=== PATIENT | female | born 1990 | race Caucasian/White ===

== ENCOUNTER 2019-08-03 18:21 | Emergency (ER) | payer MEDICAID ==
--- NOTE | 2019-08-03 18:54 | ER Document Report ---
ED ENT - General Chief Complaint: Sore Throat Stated Complaint: SORE THROAT,LEFT EAR PAIN Time Seen by Provider: 08/03/19 18:48 Primary Care Provider: MICHAEL FRANCO PA-C [Primary Care Provider] - Follow up in 3-5 days Mode of Arrival: Ambulatory Information source: Patient Notes: 28-year-old female presents to ED for complaint of cough cold congestion left ear pain and sore throat. She states she has not had any fever and she does not have a fever at this time. She states that she is and she wants to be sure she does not have anything. TRAVEL OUTSIDE OF THE [place] IN LAST 30 DAYS: No - HPI Patient complains to provider of: Ear problem - Left ear pain, Throat problem Onset: Other - 2 days Onset/Duration: Gradual Quality of pain: Achy Severity: Moderate Pain Level: 2 Context: Recent Illness Location of pain: Ears, Nose, Sinus, Throat Associated symptoms: Ear pain - Left, Runny nose, Sinus pain, Sinus drainage, Sore throat Similar symptoms previously: Yes Recently seen / treated by doctor: No - Related Data Allergies/Adverse Reactions: divalproex sodium [From Depakote] Allergy (Verified 02/12/12 21:17) guanfacine HCl [From Tenex] Allergy (Verified 02/12/12 21:17) oxcarbazepine [From Trileptal] Allergy (Verified 02/12/12 21:15) Past Medical History - General Information source: Patient - Social History Smoking Status: Former Smoker Frequency of alcohol use: None Drug Abuse: None Lives with: Grandparent(s) Family History: Reviewed & Not Pertinent Patient has suicidal ideation: No Patient has homicidal ideation: No - Past Medical History Cardiac Medical History: Reports: None Pulmonary Medical History: Reports: None EENT Medical History: Reports: None Neurological Medical History: Reports: None Endocrine Medical History: Reports: None Renal/ Medical History: Reports: None Malignancy Medical History: Reports: None GI Medical History: Reports: None Musculoskeletal Medical History: Reports None Skin Medical History: Reports None Psychiatric Medical History: Reports: Hx Attention Deficit Hyperactivity Disorder, Hx Bipolar Disorder Traumatic Medical History: Reports: None Infectious Medical History: Reports: None Surgical Hx: Negative Past Surgical History: Reports: None - Immunizations Immunizations up to date: Yes Hx Diphtheria, Pertussis, Tetanus Vaccination: Yes Review of Systems - Review of Systems Constitutional: No symptoms reported EENT: Ear pain, Nose congestion, Nose discharge, Sinus discharge, Throat pain Cardiovascular: No symptoms reported Respiratory: No symptoms reported Gastrointestinal: No symptoms reported Genitourinary: No symptoms reported Female Genitourinary: No symptoms reported Musculoskeletal: No symptoms reported Skin: No symptoms reported Hematologic/Lymphatic: No symptoms reported Neurological/Psychological: No symptoms reported Physical Exam - Vital signs Vitals: Temp Pulse Resp BP Pulse Ox 98.1 F 84 18 125/75 99 08/03/19 18:35 08/03/19 18:35 08/03/19 18:35 08/03/19 18:35 08/03/19 18:35 Interpretation: Normal - General General appearance: Appears well, Alert - HEENT Head: Normocephalic, Atraumatic Eyes: Normal Pupils: PERRL Ears: Normal External canal: Normal Tympanic membrane: Normal Sinus: Normal Nasal: Purulent discharge, Swelling Mouth/Lips: Normal Mucous membranes: Normal Pharynx: Post nasal drainage, Other - Patient insist on strep test because she is . She does not appear to be strep positive. She does not have a fever. Strep test was sent. No: Erythema, Exudate, Retropharyngeal abscess, Tonsillar hypertrophy, Uvular edema, Potential airway comprom. Neck: Normal - Respiratory Respiratory status: No respiratory distress Chest status: Nontender Breath sounds: Normal Chest palpation: Normal - Cardiovascular Rhythm: Regular Heart sounds: Normal auscultation Murmur: No - Abdominal Inspection: Normal Distension: No distension Bowel sounds: Normal Tenderness: Nontender Organomegaly: No organomegaly - Back Back: Normal, Nontender - Extremities General upper extremity: Normal inspection, Nontender, Normal color, Normal ROM, Normal temperature General lower extremity: Normal inspection, Nontender, Normal color, Normal ROM, Normal temperature, Normal weight bearing. No: Wanda's sign - Neurological Neuro grossly intact: Yes Cognition: Normal Orientation: AAOx4 [place] Coma Scale Eye Opening: Spontaneous Fred Coma Scale Verbal: Oriented Fred Coma Scale Motor: Obeys Commands Fred Coma Scale Total: 15 Speech: Normal Motor strength normal: LUE, RUE, LLE, RLE Sensory: Normal - Psychological Associated symptoms: Normal affect, Normal mood - Skin Skin Temperature: Warm Skin Moisture: Dry Skin Color: Normal Course - Re-evaluation Re-evalutation: 08/03/19 20:38 Strep test was negative I gave patient and written report of the strep test. After performing a Medical Screening Examination, I estimate there is LOW risk for ACUTE CORONARY SYNDROME, RESPIRATORY FAILURE, SEPSIS OR MENINGITIS, thus I consider the discharge disposition reasonable. I have reevaluated this patient multiple times and no significant life threatening changes are noted. The patient and I have discussed the diagnosis and risks, and we agree with discharging home with close follow-up. We also discussed returning to the Emergency Department immediately if new or worsening symptoms occur. We have discussed the symptoms which are most concerning (e.g., changing or worsening pain, trouble swallowing or breathing, neck stiffness, fever) that necessitate immediate return. - Vital Signs Vital signs: Temp Pulse Resp BP Pulse Ox 98.4 F 86 16 116/88 H 99 08/03/19 19:38 08/03/19 19:38 08/03/19 19:38 08/03/19 19:38 08/03/19 19:38 Discharge - Discharge Clinical Impression: Sore throat (viral), Otalgia, left ear URI (upper respiratory infection) Qualifiers: URI type: unspecified viral URI Qualified Code(s): J06.9 - Acute upper respiratory infection, unspecified Condition: Stable Disposition: HOME, SELF-CARE Additional Instructions: SORE THROAT: Sore throats may be caused by viruses, bacteria, or fungi. Most are due to a virus, and must get better on their own. Bacterial sore throats, particularly those due to "strep," need treatment with antibiotics. If an antibiotic is prescribed, be sure to take the medication for a full 10 days. Failure to take the antibiotic can result in complications such as rheumatic fever. Sometimes, an injection of antibiotics is given instead of pills or liquid. This single "shot" is equal in effectiveness to the oral medication. To relieve symptoms, take acetaminophen for pain. Sip clear liquids frequently, or eat popsicles or ice chips. Anesthetic sprays or lozenges may help. Make sure the air in the room is not too dry. Avoid using decongestants or antihistamines. Call the doctor if there is no improvement in two days, or if you have difficulty breathing, increasing throat pain, high fever, rash, or frequent vomiting. UPPER RESPIRATORY ILLNESS: You have a viral infection of the respiratory passages -- a "cold." This common infection causes nasal congestion, drainage, and often sore throat and cough. It is highly contagious. The disease usually lasts about 10 to 14 days. There is no "cure" for the viral infection -- it must run its course. If there is a complication, such as bacterial infection in the nose, sinuses, middle ear, or bronchial tubes, antibiotics may be required. The antibiotics won't affect the virus. Drink plenty of fluids. A humidifier may help. An expectorant medication or decongestant may make you more comfortable. Use acetaminophen or ibuprofen for fever or aches. See the doctor if fever persists over two days, if there is any significant worsening of your symptoms, or if you simply fail to improve as expected. COUGH-SUPPRESSANT & EXPECTORANT MEDICATION: You are to use a cough medication as needed for relief of symptoms. This medicine is a combination of an expectorant (to make the mucous thinner and more easily "coughed up") and a cough suppressant (to reduce the frequency of coughing). The cough-suppressant medicine is related to narcotics. You may experience mild nausea and sleepiness. Some patients who are very sensitive to narcotics may have stomach pain from this medicine. Taking the medicine with food reduces these side effects. Do not drive or work with machinery until you know how this medicine affects you. The expectorant should have no side effects. Iodine-containing expectorants (such as organidin) should not be taken by persons with active thyroid disease unless approved by your doctor. Call the doctor if you develop shortness of breath, hives, rash, itching, lightheadedness, or severe nausea and vomiting. USE OF ACETAMINOPHEN (Tylenol): Acetaminophen may be taken for pain relief or fever control. It's much safer than aspirin, offering a wider range of "safe" dosages. It is safe during . Some brand names are Tylenol, Panadol, Datril, Anacin 3, Tempra, and Liquiprin. Acetaminophen can be repeated every four hours. The following are maximum recommended dosages: >89 pounds or adults 650 mg to 900 mg Acetaminophen can be repeated every four hours. Maximum dose not to exceed 4000 mg a day. FOLLOW-UP CARE: If you have been referred to a physician for follow-up care, call the p hysicians office for an appointment as you were instructed or within the next two days. If you experience worsening or a significant change in your symptoms, notify the physician immediately or return to the Emergency Department at any time for re-evaluation. Referrals: MICHAEL FRANCO PA-C [Primary Care Provider] - Follow up in 3-5 days
[2019-08-03 19:44] VITALS: BP 116/88
== END 2019-08-03 20:02 | disposition home or self-care (01) ==
LOC: ER 18:21
DX: J06.9 Acute upper respiratory infection, unspecified (principal); J02.9 Acute pharyngitis, unspecified; H92.02 Otalgia, left ear
CPT/HCPCS: 87070; 87880; 99283

== ENCOUNTER 2019-10-01 20:53 | Outpatient (CLI) | payer MEDICAID ==
[2019-10-01 22:16] LABS: APPEARANCE,URINE CLOUDY; BILIRUBIN,URINE NEGATIVE (NEGATIVE); COLOR,URINE YELLOW; GLUCOSE, URINE NEGATIVE (NEGATIVE); KETONES,URINE NEGATIVE (NEGATIVE); LEUKOCYTE ESTERASE,URINE LARGE (NEGATIVE); NITRITE,URINE NEGATIVE (NEGATIVE); PROTEIN,URINE NEGATIVE (NEGATIVE); URINE SPECIFIC GRAVITY 1.028; UROBILINOGEN,URINE NEGATIVE mg/dL (<2.0)
[2019-10-01 22:33] LABS: URINE AMPHETAMINES SCREEN NEGATIVE; URINE BARBITURATES SCREEN NEGATIVE; URINE BENZODIAZEPINES SCREEN NEGATIVE; URINE COCAINE SCREEN NEGATIVE; URINE MARIJUANA (THC) SCREEN NEGATIVE; URINE METHADONE SCREEN NEGATIVE; URINE PHENCYCLIDINE SCREEN NEGATIVE
== END 2019-10-01 22:32 | disposition home or self-care (01) ==
LOC: LC 20:53
PROVIDERS: ATTEND Student in an Organized Health Care Education/Training Program
PROC: 4A1HXCZ Monitoring of Products of Conception, Cardiac Rate, External Approach (ICD-10-PCS; principal; 2019-10-01)
DX: O26.893 Other specified pregnancy related conditions, third trimester (principal); E86.0 Dehydration; Z3A.39 39 weeks gestation of pregnancy
CPT/HCPCS: 80307; 81005

== ENCOUNTER 2019-10-07 15:44 | Outpatient (CLI) | payer MEDICAID ==
--- NOTE | 2019-10-07 15:58 | Non Stress Test Report ---
Non Stress Test Datetime Report Generated by CPN: 10/07/2019 15:58 DEMOGRAPHIC Test Number: 2 EGA NST: 39.5 INDICATION Indication for Study (NST) Other: LC ordered by provider Indication for Study (NST) Other: Labor check MONITORING Monitor Explained: Monitor Explained; Test Explained; Patient Verbalized Understanding Time on Monitor: 10/01/2019 21:15 Time off Monitor: 10/01/2019 22:18 NST Duration: 63 NST INTERVENTIONS NST Interventions: None Physician Notified NST: Dr Rivera BABY A: [id number] BABY A Movement : Present Contraction Frequency : occasional FHR Baseline : 140 Accelerations : 15X15 Decelerations : None Variability : Moderate 6-25bpm NST Review: Meets Criteria for Reactive NST NST Review and Verified By : Júnior Smith RN NST Results: Reactive NST REPORT Report Trigger: Send Report
[2019-10-07 17:10] LABS: AMORPHOUS SEDIMENT,URINE TRACE /HPF; APPEARANCE,URINE CLOUDY; BILIRUBIN,URINE NEGATIVE (NEGATIVE); COLOR,URINE YELLOW; GLUCOSE, URINE NEGATIVE (NEGATIVE); KETONES,URINE NEGATIVE (NEGATIVE); LEUKOCYTE ESTERASE,URINE MODERATE (NEGATIVE); NITRITE,URINE NEGATIVE (NEGATIVE); PROTEIN,URINE NEGATIVE (NEGATIVE); URINE SPECIFIC GRAVITY 1.018
[2019-10-07 17:43] LABS: URINE AMPHETAMINES SCREEN NEGATIVE; URINE BARBITURATES SCREEN NEGATIVE; URINE BENZODIAZEPINES SCREEN NEGATIVE; URINE COCAINE SCREEN NEGATIVE; URINE MARIJUANA (THC) SCREEN NEGATIVE; URINE METHADONE SCREEN NEGATIVE; URINE PHENCYCLIDINE SCREEN NEGATIVE
== END 2019-10-07 18:15 | disposition home or self-care (01) ==
LOC: LC 15:44
PROVIDERS: ATTEND Student in an Organized Health Care Education/Training Program
DX: O47.1 False labor at or after 37 completed weeks of gestation (principal); O48.0 Post-term pregnancy; Z3A.40 40 weeks gestation of pregnancy
CPT/HCPCS: 59025; 80307; 81001

== ENCOUNTER 2019-10-08 18:00 | Outpatient (CLI) | payer MEDICAID ==
--- NOTE | 2019-10-08 18:49 | Non Stress Test Report ---
Non Stress Test Datetime Report Generated by CPN: 10/08/2019 18:49 DEMOGRAPHIC EGA NST: 40.5 INDICATION Indication for Study (NST) Other: Contractions MONITORING Monitor Explained: Monitor Explained; Test Explained; Patient Verbalized Understanding Time on Monitor: 10/08/2019 18:12 Time off Monitor: 10/08/2019 18:43 NST Duration: 31 NST INTERVENTIONS NST Interventions: PO Hydration Physician Notified NST: Dr. Herron BABY A: [id number] BABY A Movement : Present Contraction Frequency : Irreg FHR Baseline : 150 Accelerations : 15X15 Decelerations : None Variability : Moderate 6-25bpm NST Review: Meets Criteria for Reactive NST NST Review and Verified By : JOSEFINA Cotton Results: Reactive NST REPORT Report Trigger: Send Report
[2019-10-08 19:01] LABS: APPEARANCE,URINE SLIGHTLY-CLOUDY; BILIRUBIN,URINE NEGATIVE (NEGATIVE); COLOR,URINE YELLOW; GLUCOSE, URINE NEGATIVE (NEGATIVE); KETONES,URINE NEGATIVE (NEGATIVE); LEUKOCYTE ESTERASE,URINE TRACE (NEGATIVE); NITRITE,URINE NEGATIVE (NEGATIVE); PROTEIN,URINE NEGATIVE (NEGATIVE); URINE SPECIFIC GRAVITY 1.016; UROBILINOGEN,URINE NEGATIVE mg/dL (<2.0)
[2019-10-08 19:19] LABS: URINE AMPHETAMINES SCREEN NEGATIVE; URINE BARBITURATES SCREEN NEGATIVE; URINE BENZODIAZEPINES SCREEN NEGATIVE; URINE COCAINE SCREEN NEGATIVE; URINE MARIJUANA (THC) SCREEN NEGATIVE; URINE METHADONE SCREEN NEGATIVE; URINE PHENCYCLIDINE SCREEN NEGATIVE
== END 2019-10-08 19:59 | disposition home or self-care (01) ==
LOC: LC 18:00
PROVIDERS: ATTEND Obstetrics & Gynecology Gynecology
PROC: 4A1HXCZ Monitoring of Products of Conception, Cardiac Rate, External Approach (ICD-10-PCS; principal; 2019-10-08)
DX: O47.1 False labor at or after 37 completed weeks of gestation (principal); O48.0 Post-term pregnancy; Z3A.40 40 weeks gestation of pregnancy
CPT/HCPCS: 59025; 80307; 81005

== ENCOUNTER 2019-10-09 03:55 | Inpatient (IN) | payer MEDICAID ==
[2019-10-09 04:36] LABS: APPEARANCE,URINE SLIGHTLY-CLOUDY; BILIRUBIN,URINE NEGATIVE (NEGATIVE); COLOR,URINE YELLOW; GLUCOSE, URINE NEGATIVE (NEGATIVE); KETONES,URINE TRACE mg/dL (NEGATIVE); LEUKOCYTE ESTERASE,URINE SMALL (NEGATIVE); NITRITE,URINE NEGATIVE (NEGATIVE); PROTEIN,URINE 30 mg/dL (NEGATIVE); URINE SPECIFIC GRAVITY 1.028; UROBILINOGEN,URINE NEGATIVE mg/dL (<2.0)
[2019-10-09 04:56] LABS: URINE AMPHETAMINES SCREEN NEGATIVE; URINE BARBITURATES SCREEN NEGATIVE; URINE BENZODIAZEPINES SCREEN NEGATIVE; URINE COCAINE SCREEN NEGATIVE; URINE MARIJUANA (THC) SCREEN NEGATIVE; URINE METHADONE SCREEN NEGATIVE; URINE PHENCYCLIDINE SCREEN NEGATIVE
[2019-10-09] MEDS ORDERED: MISOPROSTOL 0.2 MG TABLET ONE (05:19)
[2019-10-09] MEDS ORDERED: OXYTOCIN 10 UNIT/ML VIAL ONE (05:19)
[2019-10-09] MEDS ORDERED: OXYTOCIN/NORMAL SALINE 20 UNIT/1,000 ML RTUINJ ONE (05:19)
[2019-10-09] MEDS ORDERED: LIDOCAINE 1% INJ-PF (10 MG/ML) 30 ML SDV ONE (05:19)
[2019-10-09] MEDS ORDERED: RINGERS SOLUTION,LACTATED 1,000 ML IV ONE (05:28)
[2019-10-09] MEDS ORDERED: PENICILLIN G POTASSIUM 5,000,000 UNIT in DEXTROSE 5%-WATER 100 ML IV ONE (05:28)
[2019-10-09] MEDS ORDERED: PENICILLIN G-K 5 MILLION UNIT VIAL ONE ×5 (05:31→21:59)
[2019-10-09 05:59] LABS: ABSOLUTE BASOPHILS # (AUTO) 0.1 10^3/uL (0.0-0.2); ABSOLUTE EOSINOPHILS # (AUTO) 0.1 10^3/uL (0.0-0.6); ABSOLUTE LYMPHOCYTES (AUTO) 2.1 10^3/uL (0.5-4.7); ABSOLUTE MONOCYTES (AUTO) 0.6 10^3/uL (0.1-1.4); ABSOLUTE NEUT (AUTO) 9.2 10^3/uL (1.7-8.2); BASOPHILS % (AUTO) 0.8 % (0-2); EOSINOPHILS % (AUTO) 0.9 % (0-6); HEMATOCRIT 35.2 % (36.0-47.0); HEMOGLOBIN 11.9 g/dL (12.0-15.5); LYMPHOCYTES % (AUTO) 17.1 % (13-45); MEAN CORPUSCULAR HEMOGLOBIN 28.2 pg (27.0-33.4); MEAN CORPUSCULAR HGB CONC 33.7 g/dL (32.0-36.0); MEAN CORPUSCULAR VOLUME 84 fl (80-97); MONOCYTES % (AUTO) 4.8 % (3-13); PLATELET COUNT 252 10^3/uL (150-450); RED CELL DISTRIBUTION WIDTH 14.5 % (11.5-14.0); SEGMENTED NEUTROPHILS % (AUTO) 76.4 % (42-78); TOTAL CELLS COUNTED % (AUTO) 100 %
[2019-10-09] MEDS ORDERED: OXYTOCIN/NORMAL SALINE 20 UNIT/1,000 ML RTUINJ IV PRN (07:44)
[2019-10-09] MEDS ORDERED: MORPHINE SULFATE 10 MG/ML INJ IV ONE (07:44)
[2019-10-09] MEDS ORDERED: MORPHINE SULFATE 10 MG/ML INJ ONE (07:47)
[2019-10-09] MEDS: PENICILLIN G POTASSIUM 2,500,000 UNIT in DEXTROSE 5%-WATER 50 ML IV SCH ×4 (09:26→22:01)
[2019-10-09] MEDS: RINGERS SOLUTION,LACTATED 1,000 ML IV PRN (13:29)
[2019-10-09] MEDS ORDERED: EPHEDRINE SULFATE INJ 50 MG/1 ML AMPULE ONE (13:40)
[2019-10-09] MEDS ORDERED: FENTANYL CITRATE INJ/PF 100 MCG/2 ML AMPUL ONE (13:40)
[2019-10-09] MEDS ORDERED: FENTANYL/BUPIVACAINE/NS/PF 300 MCG/150 ML RTUINJ EPI ONE (13:41)
[2019-10-09] MEDS ORDERED: BUPIVACAINE HCL 0.25 % INJ/PF (2.5 MG/1 ML) 30 ML VIAL ONE (13:41)
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
[2019-10-10] MEDS ORDERED: DIPHENHYDRAMINE HCL 50 MG/ML VIAL ONE (00:35)
[2019-10-10] MEDS ORDERED: DIPHENHYDRAMINE HCL 50 MG/ML VIAL IV ONE (00:36)
[2019-10-10] MEDS ORDERED: CALCIUM CARBONATE 500 MG TAB.CHEW PO ONE (00:47)
[2019-10-10] MEDS ORDERED: PENICILLIN G-K 5 MILLION UNIT VIAL ONE (02:18)
[2019-10-10] MEDS ORDERED: FENTANYL/BUPIVACAINE/NS/PF 300 MCG/150 ML RTUINJ EPI ONE (02:18)
[2019-10-10] MEDS: PENICILLIN G POTASSIUM 2,500,000 UNIT in DEXTROSE 5%-WATER 50 ML IV SCH ×4 (02:25→17:51)
[2019-10-10] MEDS ORDERED: CEFAZOLIN INJ 1 GM VIAL ONE (06:04)
[2019-10-10] MEDS ORDERED: CITRIC ACID/SODIUM CITRATE ORAL SOLN 15 ML UDCUP ONE (06:04)
--- NOTE | 2019-10-10 06:17 | PDOC PROGRESS REPORT ---
Subjective Progress Note for:: 10/09/19 Subjective:: Called to patients room as she was complete and pushing for 1 hour. Assessed and still 0-1+ station. Maternal fatigue and patients pushing effort poor. D/c with patient that small amount of cervical swelling noted. Can give benadryl for swellling of anterior lip and will let her labor down after repositioning and Pitocin break. SHe is agreeable as she prefers a vaginal delivery if possible. Reason For Visit: Physical Exam - Physical Exam Vital Signs: Intake & Output 10/08/19 10/09/19 10/10/19 06:59 06:59 06:59 Weight 93 kg General appearance: PRESENT: no acute distress Neurological exam: PRESENT: alert, awake, oriented to person, oriented to time, oriented to situation Psychiatric exam: PRESENT: appropriate affect Skin exam: PRESENT: dry, warm - Gynecological Exam Cervix: other - ANterior lip, mild swelling compared to earlier-approx 1/2 cm 0 to 1+ station Result Laboratory Results: 10/09/19 05:40 10/09/19 05:40 Blood Type B POSITIVE Antibody Screen NEGATIVE Assessment & Plan - Diagnosis (1) PROM (premature rupture of membranes) Is this a current diagnosis for this admission?: Yes Plan: Continue current care WIll give benadryl IV, allow patient to rest. INstructed to call out iwth pressure or urge to push. Cat 1 NST Continue GBS prophylaxis, CEFM and toco - Time Time Spent with patient: 15-24 minutes
--- NOTE | 2019-10-10 06:25 | PDOC PROGRESS REPORT ---
Subjective Progress Note for:: 10/10/19 Subjective:: Patient rested approx 4-5 hours but is now feeling pressure and urge to push. Pushed with patient for >30 minutes and no progression of station. Maternal exhaustion and inability to rally further efforts. D/c with her that baby is not descending in pelvis despite her effort and escalating doing of pitocin . Recommend primary CS. RIsks , benefits and alternatives discussed. Consent signed. Ancef and abdominal prep ordered. Reason For Visit: Physical Exam - Physical Exam Vital Signs: Intake & Output 10/08/19 10/09/19 10/10/19 06:59 06:59 06:59 Weight 93 kg - Gynecological Exam Cervix: other - ANterior lip, mild swelling compared to earlier-approx 1/2 cm 0 to 1+ station Result Laboratory Results: 10/09/19 05:40 10/09/19 05:40 Blood Type B POSITIVE Antibody Screen NEGATIVE Assessment & Plan - Diagnosis (1) PROM (premature rupture of membranes) Is this a current diagnosis for this admission?: Yes (2) Arrested active phase of labor Is this a current diagnosis for this admission?: Yes Plan: Plan for Primary section -ANcef two grams prior to OR -Desires BTL and title XX signed -OR and anesthesia notified. - Time Time Spent with patient: 15-24 minutes
[2019-10-10 07:24] LABS: ABSOLUTE LYMPHOCYTES (AUTO) 1.3 10^3/uL (0.5-4.7); ABSOLUTE MONOCYTES (AUTO) 0.8 10^3/uL (0.1-1.4); ABSOLUTE NEUT (AUTO) 12.1 10^3/uL (1.7-8.2); BASOPHILS % (AUTO) 0.2 % (0-2); HEMATOCRIT 34.2 % (36.0-47.0); HEMOGLOBIN 11.8 g/dL (12.0-15.5); LYMPHOCYTES % (AUTO) 9.1 % (13-45); MEAN CORPUSCULAR HEMOGLOBIN 28.4 pg (27.0-33.4); MEAN CORPUSCULAR HGB CONC 34.5 g/dL (32.0-36.0); MEAN CORPUSCULAR VOLUME 82 fl (80-97); PLATELET COUNT 167 10^3/uL (150-450); RED BLOOD COUNT 4.16 10^6/uL (3.72-5.28); RED CELL DISTRIBUTION WIDTH 14.6 % (11.5-14.0); SEGMENTED NEUTROPHILS % (AUTO) 84.7 % (42-78); TOTAL CELLS COUNTED % (AUTO) 100 %; WHITE BLOOD COUNT 14.2 10^3/uL (4.0-10.5)
[2019-10-10] MEDS ORDERED: LIDOCAINE 2% INJ-PF (20 MG/ML) 10 ML AMPUL ONE ×2 (07:32→08:35)
[2019-10-10] MEDS ORDERED: OXYTOCIN 10 UNIT/ML VIAL ONE ×2 (07:39→08:17)
[2019-10-10] MEDS ORDERED: FENTANYL CITRATE INJ/PF 100 MCG/2 ML AMPUL ONE ×2 (07:39→08:35)
[2019-10-10] MEDS ORDERED: MIDAZOLAM 2 MG/2 ML INJ ONE (07:40)
[2019-10-10] MEDS ORDERED: EPHEDRINE SULFATE INJ 50 MG/1 ML AMPULE ONE (07:40)
[2019-10-10] MEDS ORDERED: OXYTOCIN/NORMAL SALINE 20 UNIT/1,000 ML RTUINJ ONE (07:40)
[2019-10-10] MEDS ORDERED: ONDANSETRON HCL INJ/PF 4 MG/2 ML SDV ONE (07:40)
[2019-10-10] MEDS ORDERED: METHYLERGONOVINE MALEATE INJ/PF 0.2 MG/1 ML AMPULE ONE (08:18)
[2019-10-10] MEDS ORDERED: PROMETHAZINE HCL INJ 25 MG/1 ML VIAL IV PRN (09:04)
[2019-10-10] MEDS ORDERED: DIPH/PERTUSS(ACELL)/TETANUS VAC/PF 0.5 ML SYR (>=10YO) IM PRN (09:04)
[2019-10-10] MEDS ORDERED: MEASLES,MUMPS&RUBELLA VACC/PF 0.5 ML VIAL SUBCUT PRN (09:04)
[2019-10-10] MEDS ORDERED: HYDROMORPHONE HCL INJ/PF 2 MG/ML AMPULE IV PRN (09:04)
[2019-10-10] MEDS ORDERED: ACETAMINOPHEN 325 MG TABLET PO PRN (09:04)
[2019-10-10] MEDS ORDERED: SIMETHICONE 80 MG TAB.CHEW PO PRN (09:04)
[2019-10-10] MEDS ORDERED: OXYCODONE-ACETAMINOPHEN 5-325 MG TABLET PO PRN (09:04)
[2019-10-10] MEDS ORDERED: OXYTOCIN/NORMAL SALINE 20 UNIT/1,000 ML RTUINJ IV PRN (09:04)
--- NOTE | 2019-10-10 09:20 | PDOC DELIVERY SUMMARY ---
Delivery Summary - Maternal Hx : I Hx Para: 0 RANJIT: 10/08/19 Gestational Age: 40.2 Ruptured Membranes: SROM Fluids: Clear - Delivery Labor: Prolonged Second Stage- Greater Than 2.5 Hours Presentation: Vertex - Occiput posterior Heart Rate Monitoring: Externally Uterine Contraction Monitoring: External Support Person Present: Yes : Primary Placenta: Within Normal Limits Estimated Blood Loss: 800cc - Medications Type of Anesthesia:: Spinal - Delivery Personnel MD: LISA RICH
[2019-10-10] MEDS ORDERED: KETOROLAC TROMETHAMINE INJ/PF 30 MG/1 ML SDV ONE (09:29)
[2019-10-10] MEDS: KETOROLAC TROMETHAMINE INJ/PF 30 MG/1 ML SDV IV SCH ×2 (09:33→15:46)
[2019-10-10] MEDS ORDERED: ACETAMINOPHEN 1,000 MG/100 ML RTUPB IV ONE (09:38)
[2019-10-10] MEDS ORDERED: ACETAMINOPHEN 1,000 MG/100 ML RTUPB IV PRN (09:39)
--- NOTE | 2019-10-10 10:07 | Operative Report ---
Operative Report DATE OF SURGERY: 10/10/19 PREOPERATIVE DIAGNOSIS: Arrest of descent. Prolonged active phase of labor. M aternal exhaustion POSTOPERATIVE DIAGNOSIS: Same as above with addition of occiput posterior OPERATION: Primary section SURGEON: LISA RICH ANESTHESIA: Spinal TISSUE REMOVED OR ALTERED: Placenta COMPLICATIONS: Difficulty with delivery anterior shoulder requiring a T type incision on uterus and extension ESTIMATED BLOOD LOSS: 800cc INTRAOPERATIVE FINDINGS: NOrmal appearing uterus, bilateral fallopian tubes and ovaries. Baby in occiput posterior position. Viable female with apgars of 5 and 9 at one and 5 minutes respectfully. Uterine incision T- shape due to difficulty with delivery of anterior shoulder. Extension of uterine incision by 1 cm on right side. PROCEDURE: IV fluids: per anesthesia record Urinary output: 250 cc Findings: Normal-appearing uterus bilateral fallopian tubes and ovaries. Viable female infant with Apgars of 5 and 9, at 1 and 5 minutes respectively. Position: To recovery room in stable condition Description of procedure: The patient was taken to the operating room and spinal anesthesia was administered and found to be adequate. She was then placed on the OR table in the supine position with a slight leftward tilt. Patient was prepped and draped in usual sterile fashion. Ancef 2 gms was given IV prior to the procedure for infection prophylaxis. Timeout was taken. A Pfannenstiel skin incision was then made approximately 3 cm above the pubic symphysis and carried down to level the rectus fascia. The rectus fascia was then nicked in the midline with a scalpel and the fascial incision was extended laterally with use of curved Gaffney scissors. The rectus fascia was then grasped with 2 Kocker clamps elevated and the underlying rectus muscle was dissected off both bluntly and sharply. Any bleeding controlled with cautery. The rectus muscles were then split in the midline and the peritoneum was entered. The peritoneal incision was then extended by manually stretching the peritoneum. The bladder blade was positioned. The bladder was noted to be out of harm's way. A scalpel was then used in the lower uterine for the hysterotomy, slowly until amniotomy was obtained a large amount of fluid was noted. The uterine incision was then manually stretched. The infant was noted to be in vertex postion -deep in the pelvis. Using a hand deep in pelvis and assistance from RN from below the drape, the head was elevated and brought to the hysterotomy incision. The head then delivered with minmal difficulty. The shoulders were very difficult to deliver. The uterine incision was extended with bandage scissors and the anterior shoulder still would not deliver. Bandage scissors were used to extend the uterine incision in a T-shaped fashion. Still with some difficulty the anterior shoulder finally delivered. The rest of the body followed immediately. The cord was cut clamped and the was handed off to the nurse awaiting. The placenta was manually delivered. Using a lap gauze the uterus was cleared of all clots and debris. The uterus was then exteriorized and a bladder blade was repositioned. The uterine incision and T incsion were then closed with 0 Chromic suture in a running locked fashion. There was a 1 cm extension on the right toward the cervix and this was repaired with 0 chromic suture as well. A second layer of the same suture was used in a running locked imbricated fashion. The uterine incision was inspected as well as the extension and T incision on the uterus and all were noted to be hemostatic. The posterior aspect of the uterus was then inspected and anatomy was seen as above. The uterus was returned to its normal anatomic position within the abdominal cavity. Warm saline irrigation was used to clear all clots and debris from the abdomen. The uterine incision was inspected once more and noted to remain hemostatic. Surgicel was placed over the uterine incision and T incision on the uterus care was taken to make sure the Surgicel covered the extension on the r ight side as above. The bladder blade was removed and the peritoneum was closed with 2-0 chromic in a running fashion. The rectus muscles were then reapproximated and the rectus fascia was closed with a #1 PDS in a running fashion. The subcutaneous tissue was then inspected and any bleeding was controlled with Bovie electrocautery. The subcutaneous tissue was then closed with 2-0 Plain Gut suture in a running fashion. The skin was then closed with 3- 0 Monocryl in a running subcuticular fashion. The skin incision was then clean dried and Dermabond was applied over the skin incision. All instrument sponge and needle counts were correct x3 for the procedure the patient tolerated the procedure well. She will proceed to recovery room in stable condition
--- NOTE | 2019-10-10 10:17 | Delivery Summary ---
Del Sum A-C Datetime Report Generated by CPN: 10/10/2019 10:17 DELIVERY PERSONNEL DELIVERY PERSONNEL: [id number] Delivery Doctor:: Cat Dominguez MD Anesthesiologist:: Amy Sandoval MD ROAD MANAGER:: Rolando Durand CRNA Frame Tender:: Char Robertson RN Neonatal Nurse Practitioner:: PAULO Ellison Nursery Nurse:: Joanne Trinidad RN Nursery Nurse:: Fani Titus RN Cinema Operator/DRAFTER AUTOMOTIVE DESIGN: Anita Marina CST Cinema Operator/DRAFTER AUTOMOTIVE DESIGN: [facility] [place] Additional Personnel: : Romelia Iglesias RN MATERNAL INFORMATION Delivery Anesthesia: Epidural Medications After Delivery: Pitocin Drip 20 Units/1000ml NSS; Other-Please Comment Meds After Delivery Comment: pitocin 20 units in 1000mL nss Please see anesthesia record Delivery QBL: 778 Maternal Complications: None LABOR SUMMARY EDC: 10/03/2019 00:00 No. Babies in Womb: 1 Attempted: No Labor Anesthesia: Epidural LABOR INFORMATION Reason for Induction: Not Applicable Onset of Labor: 10/09/2019 07:25 Complete Dilatation: 10/09/2019 19:42 Oxytocin: Augmentation Group B Beta Strep: Positive Antibiotics # of Doses: 6 Antibiotics Time of Last Dose: 224 Name of Antibiotic Given: PCN Steroids Given: None Reason Steroids Not Administered: Not Applicable MEMBRANES Membranes Rupture Method: Spontaneous Rupture of Membranes: 10/09/2019 00:30 Length of Rupture (hr): 31.72 Amniotic Fluid Color: Clear Amniotic Fluid Amount: Small Amniotic Fluid Odor: Normal STAGES OF LABOR Stage 1 hr: 12 Stage 1 min: 17 Stage 2 hr: 12 Stage 2 min: 31 Stage 3 hr: 0 Stage 3 min: 1 Total Time in Labor hr: 24 Total Time in Labor min: 49 VAGINAL DELIVERY Episiotomy: None Laceration #1: None Laceration Extension #1: N/A Laceration Repair: Not Applicable Sponge Count Correct: N/A Sharps Count Correct: N/A CSECTION DELIVERY Primary Indication: Failure of Descent CSection Urgency: Non-Scheduled CSection Incidence: Primary Labor: Labor Elective: Nonelective CSection Incision: Lower Uterine Transverse BABY A INFORMATION Infant Delivery Date/Time: 10/10/2019 08:13 Method of Delivery: Nurse Controlled Delivery: No Born in Route : No : N/A Forceps: N/A Vacuum Extraction: N/A Shoulder Dystocia : No PRESENTATION/POSITION BABY A Presentation: Cephalic Cephalic Presentation: Vertex Vertex Position: Direct OP Breech Presentation: N/A PLACENTA INFORMATION BABY A Placenta Delivery Time : 10/10/2019 08:14 Placenta Method of Delivery: Manual Removal Placenta Status: Delivered SCORES BABY A Heart Rate 1 min: >100 bpm Resp Effort 1 min: Slow, Irregular Reflex Irritability 1 min: Grimace Muscle Tone 1 min: Some Flexion of Extremities Color 1 min: Blue/Pale Resuscitation Effort 1 min: Tactile Stimulation SCORE 1 MIN: 5 Heart Rate 5 min: >100 bpm Resp Effort 5 min: Good Cry Reflex Irritability 5 min: Cough or Sneeze or Pulls Away Muscle Tone 5 min: Active Motion Color 5 min: Body [place], Extremities Blue Resuscitation Effort 5 min: Tactile Stimulation SCORE 5 MIN: 9 INFORMATION BABY A Gestational Age at Delivery: 41.0 Gestational Status: Late Term- 41- 41.6 Weeks Infant Outcome : Liveborn Condition : Stable Infant Sex: Female IDENTIFICATION BABY A Infant Verification Date/Time: 10/10/2019 08:14 ID Band Number: [id number] Mother's Name Verified: Yes Infant RN Verifying Infant: RElaine Robertson RN/ CElaine Iglesias, RN WEIGHT/LENGTH BABY A Infant Birthweight (gm): 3455 Infant Weight (lb): 7 Infant Weight (oz): 10 Length (in): 20.00 Length (cm): 50.80 CORD INFORMATION BABY A No. Cord Vessels: 3 Nuchal Cord : N/A Cord Blood Taken: Yes-For Storage (Mom's Blood type +) Infant Suction: Mouth; Nose ASSESSMENT BABY A Infant Complications: None Skin to Skin: No Court Attendant/ALS Called : No Infant Care By: Nursery staff @ delivery Transferred To: Nursery BABY B INFORMATION : N/A SIGNATURES : I was personally available for consultation and serving as supervising physician for the MLP.
[2019-10-10] MEDS ORDERED: HYDROMORPHONE HCL INJ/PF 2 MG/ML AMPULE ONE (10:34)
[2019-10-10] MEDS: DOCUSATE SODIUM 100 MG CAPSULE PO SCH ×2 (13:35→17:47)
[2019-10-10] MEDS: PRENATAL VITAMIN W DHA CAPSULE PO SCH (13:35)
[2019-10-10] MEDS: OXYCODONE-ACETAMINOPHEN 5-325 MG TABLET PO PRN ×2 (14:25→21:10)
[2019-10-10] MEDS: RINGERS SOLUTION,LACTATED 1,000 ML IV PRN (14:27)
[2019-10-10] MEDS ORDERED: IBUPROFEN 800 MG TABLET ONE (20:25)
[2019-10-10] MEDS ORDERED: IBUPROFEN 800 MG TABLET PO ONE (20:30)
[2019-10-11] MEDS: IBUPROFEN 800 MG TABLET PO SCH ×5 (00:32→23:31)
[2019-10-11] MEDS: OXYCODONE-ACETAMINOPHEN 5-325 MG TABLET PO PRN ×2 (01:10→06:31)
[2019-10-11 08:09] LABS: HEMATOCRIT 30.6 % (36.0-47.0); HEMOGLOBIN 10.5 g/dL (12.0-15.5); MEAN CORPUSCULAR HEMOGLOBIN 28.6 pg (27.0-33.4); MEAN CORPUSCULAR HGB CONC 34.3 g/dL (32.0-36.0); MEAN CORPUSCULAR VOLUME 83 fl (80-97); PLATELET COUNT 163 10^3/uL (150-450); RED BLOOD COUNT 3.67 10^6/uL (3.72-5.28); RED CELL DISTRIBUTION WIDTH 14.8 % (11.5-14.0); WHITE BLOOD COUNT 12.8 10^3/uL (4.0-10.5)
[2019-10-11] MEDS: PRENATAL VITAMIN W DHA CAPSULE PO SCH (09:39)
[2019-10-11] MEDS: DOCUSATE SODIUM 100 MG CAPSULE PO SCH ×2 (09:39→17:26)
--- NOTE | 2019-10-11 11:00 | PDOC PROGRESS REPORT ---
Subjective-OB Progress Note for:: 10/11/19 Subjective: reports bleeding slowing, pain controlled with current meds. denies needs. + passing gas Physical Exam (OB) Vital Signs: Temp Pulse Resp BP Pulse Ox 97.5 F 69 16 101/62 95 10/11/19 07:30 10/11/19 07:30 10/11/19 07:30 10/11/19 07:30 10/11/19 07:30 Intake & Output 10/10/19 10/11/19 10/12/19 06:59 06:59 06:59 Intake Total 1000 700 Output Total 2525 Balance 1000 -1825 - Dressing Removed: No Incision: Open Closure Type: Surgical Glue - Abdomen Description: Tender, Soft, Round Hernia Present: No Fundal Description: Firm, Midline Fundal Height: u/u - u/2 - Abdominal Distension: No distension - Extremities Lower extremities: Wanda's sign - neg Calf: Normal, Nontender Objective-Diagnostic Laboratory: 10/11/19 07:37 10/11/19 07:37 WBC 12.8 H RBC 3.67 L Hgb 10.5 L Hct 30.6 L MCV 83 MCH 28.6 MCHC 34.3 RDW 14.8 H Plt Count 163
[2019-10-12] MEDS: IBUPROFEN 800 MG TABLET PO SCH ×2 (05:22→12:07)
--- NOTE | 2019-10-12 08:57 | PDOC PROGRESS REPORT ---
Subjective-OB Progress Note for:: 10/12/19 Subjective: Sitting up in bed, ready to go home, pain under control, voiding, passing gas, eating well Physical Exam (OB) Vital Signs: Temp Pulse Resp BP Pulse Ox 97.5 F 74 16 114/73 95 10/12/19 07:31 10/12/19 07:31 10/12/19 07:31 10/12/19 07:31 10/12/19 07:31 Intake & Output 10/11/19 10/12/19 10/13/19 06:59 06:59 06:59 Intake Total 700 400 Output Total 2525 Balance -1825 400 - PIH/Pre-Eclampsia DTR's: 1 + Clonus: Negative Headache: Absent Epigastric Pain: No Visual Changes: No - Dressing Removed: No Incision: Well Approximated Closure Type: Surgical Glue - Lochia Lochia Amount: Scant < 10 ml Lochia Color: Rubra/Red - Abdomen Description: Soft Hernia Present: No Fundal Description: Firm, Midline Fundal Height: u/u - u/2 Objective-Diagnostic Laboratory: 10/11/19 07:37 Assessment and Plan(PN) - Assessment and Plan (1) Delivery of third by section using T-shaped incision Is this a current diagnosis for this admission?: Yes (2) Encounter for induction of labor Is this a current diagnosis for this admission?: Yes (3) S/P primary low transverse Is this a current diagnosis for this admission?: Yes (4) Arrested active phase of labor Is this a current diagnosis for this admission?: Yes (5) PROM (premature rupture of membranes) Qualifiers: PROM onset of labor timing: onset of labor within 24 hours of rupture PROM gestational age: full term Qualified Code(s): O42.02 - Full-term premature rupture of membranes, onset of labor within 24 hours of rupture Is this a current diagnosis for this admission?: Yes - Time Spent with Patient Time with patient: Less than 15 minutes Medications reviewed and adjusted accordingly: Yes - Disposition Anticipated Discharge: Home
[2019-10-12] MEDS: PRENATAL VITAMIN W DHA CAPSULE PO SCH (09:10)
[2019-10-12] MEDS: DOCUSATE SODIUM 100 MG CAPSULE PO SCH (09:11)
--- NOTE | 2019-10-12 09:30 | PDOC DISCHARGE SUMMARY ---
Impression - Admit/DC Date/PCP Admission Date/Primary Care Provider: 10/09/19 04:43 MARISABEL NORTH MD Discharge Date: 10/12/19 - Discharge Diagnosis (1) Delivery of third by section using T-shaped incision Is this a current diagnosis for this admission?: Yes (2) Encounter for induction of labor Is this a current diagnosis for this admission?: Yes (3) S/P primary low transverse Is this a current diagnosis for this admission?: Yes (4) Arrested active phase of labor Is this a current diagnosis for this admission?: Yes (5) PROM (premature rupture of membranes) Is this a current diagnosis for this admission?: Yes - Additional Information Resuscitation Status: Full Code Discharge Diet: As Tolerated, Regular Discharge Activity: Activity As Tolerated, No Lifting Over 10 Pounds, No Lifting/Push/Pulling, Pelvic Rest Referrals: MARISABEL NORTH MD [Primary Care Provider] - Prescriptions: Oxycodone HCl/Acetaminophen [Percocet 5-325 mg Tablet] 1 tab PO Q4HP PRN #20 tablet PRN Reason: Ibuprofen [Motrin 800 mg Tablet] 800 mg PO Q6 #30 tablet Home Medications: Pnv No.95/Ferrous Fum/Folic AC [ Caplet] 1 cap PO DAILY 10/07/19 Ibuprofen [Motrin 800 mg Tablet] 800 mg PO Q6 #30 tablet 10/12/19 Oxycodone HCl/Acetaminophen [Percocet 5-325 mg Tablet] 1 tab PO Q4HP PRN #20 tablet 10/12/19 HPI Gestational Age: 40.6 Reason(s) for Admission: PROM, Group B Strep Positive Procedures: NST, Ultrasound Intrapartum Procedure(s): : Low Cervical, Transverse Hospital Course Hospital Course: routine Results Laboratory Results: WBC 12.8 10^3/uL (4.0-10.5) H 10/11/19 07:37 RBC 3.67 10^6/uL (3.72-5.28) L 10/11/19 07:37 Hgb 10.5 g/dL (12.0-15.5) L 10/11/19 07:37 Hct 30.6 % (36.0-47.0) L 10/11/19 07:37 MCV 83 fl (80-97) 10/11/19 07:37 MCH 28.6 pg (27.0-33.4) 10/11/19 07:37 MCHC 34.3 g/dL (32.0-36.0) 10/11/19 07:37 RDW 14.8 % (11.5-14.0) H 10/11/19 07:37 Plt Count 163 10^3/uL (150-450) 10/11/19 07:37 Lymph % (Auto) 9.1 % (13-45) L 10/10/19 07:03 [place] % (Auto) 6.0 % (3-13) 10/10/19 07:03 Eos % (Auto) 0.0 % (0-6) 10/10/19 07:03 Baso % (Auto) 0.2 % (0-2) 10/10/19 07:03 Absolute Neuts (auto) 12.1 10^3/uL (1.7-8.2) H 10/10/19 07:03 Absolute Lymphs (auto) 1.3 10^3/uL (0.5-4.7) 10/10/19 07:03 Absolute Monos (auto) 0.8 10^3/uL (0.1-1.4) 10/10/19 07:03 Absolute Eos (auto) 0.0 10^3/uL (0.0-0.6) 10/10/19 07:03 Absolute Basos (auto) 0.0 10^3/uL (0.0-0.2) 10/10/19 07:03 Seg Neutrophils % 84.7 % (42-78) H 10/10/19 07:03 Urine Color YELLOW 10/09/19 04:06 Urine Appearance SLIGHTLY-CLOUDY 10/09/19 04:06 Urine pH 5.0 (5.0-9.0) 10/09/19 04:06 Ur Specific [place] 1.028 10/09/19 04:06 Urine Protein 30 mg/dL (NEGATIVE) H 10/09/19 04:06 Urine Glucose (UA) NEGATIVE mg/dL (NEGATIVE) 10/09/19 04:06 Urine Ketones TRACE mg/dL (NEGATIVE) H 10/09/19 04:06 Urine Blood LARGE (NEGATIVE) H 10/09/19 04:06 Urine Nitrite NEGATIVE (NEGATIVE) 10/09/19 04:06 Urine Bilirubin NEGATIVE (NEGATIVE) 10/09/19 04:06 Urine Urobilinogen NEGATIVE mg/dL (<2.0) 10/09/19 04:06 Ur Leukocyte Esterase SMALL (NEGATIVE) H 10/09/19 04:06 Urine Ascorbic Acid 40 (NEGATIVE) H 10/09/19 04:06 Membranes Rupture POSITIVE (NEGATIVE) H 10/09/19 04:10 Urine Opiates Screen NEGATIVE 10/09/19 04:06 Urine Methadone Screen NEGATIVE 10/09/19 04:06 Ur Barbiturates Screen NEGATIVE 10/09/19 04:06 Ur Phencyclidine Scrn NEGATIVE 10/09/19 04:06 Ur Amphetamines Screen NEGATIVE 10/09/19 04:06 U Benzodiazepines Scrn NEGATIVE 10/09/19 04:06 Urine Cocaine Screen NEGATIVE 10/09/19 04:06 U Marijuana (THC) Screen NEGATIVE 10/09/19 04:06 RPR NONREACTIVE (NONREACTIVE) 10/09/19 05:40 Blood Type B POSITIVE 10/09/19 05:40 Antibody Screen NEGATIVE 10/09/19 05:40 Plan Health Concerns: routine, post op Plan of Treatment: d/c home, rev S&S to report Goals: no complications Time Spent: Less than 30 Minutes
[2019-10-12 11:12] VITALS: BP 110/72
== END 2019-10-12 13:57 | disposition home or self-care (01) | DRG 788 ==
LOC: LC 03:55 → LR 04:43 → 2N 10-10 11:54
PROVIDERS: ADMIT Obstetrics & Gynecology; ATTEND Obstetrics & Gynecology
PROC: 10D00Z0 Extraction of Products of Conception, High, Open Approach (ICD-10-PCS; principal; 2019-10-10)
DX: O42.12 Full-term premature rupture of membranes, onset of labor more than 24 hours following rupture (principal); O75.81 Maternal exhaustion complicating labor and delivery; O99.824 Streptococcus B carrier state complicating childbirth; O62.1 Secondary uterine inertia; O64.0XX0 Obstructed labor due to incomplete rotation of fetal head, not applicable or unspecified; Z3A.40 40 weeks gestation of pregnancy; Z37.0 Single live birth; O99.344 Other mental disorders complicating childbirth; F90.9 Attention-deficit hyperactivity disorder, unspecified type; F31.9 Bipolar disorder, unspecified
CPT/HCPCS: 1961; 36415; 80307; 81005; 84112; 85025; 85027; 86592; 86850; 86900; 86901; 88307; 94760; 94799; J0131; J0690; J1170; J1200; J1885; J2210; J2250; J2270; J2405; J2540; J2590; J3010; J3490; J7060; J7120